=== PATIENT | male | born 1985 | race Caucasian/White ===

== ENCOUNTER 2022-08-15 12:47 | Emergency (ER) | payer MEDICAID ==
[~2022-08-15] VITALS: Ht 175.3 cm; Wt 59.1 kg
[2022-08-15 13:09] LABS: COVID AG,FIA SOURCE NASAL SWAB
[2022-08-15 13:44] VITALS: BP 145/87
[2022-08-16] MEDS ORDERED: PANT40TA54 PO (08:10)
== END 2022-08-15 14:26 | disposition home or self-care (01) ==
LOC: EMS 13:04
DX: Z01.84 Encounter for antibody response examination (principal); F12.90 Cannabis use, unspecified, uncomplicated; Z20.822 Contact with and (suspected) exposure to COVID-19
CPT/HCPCS: 99283

== ENCOUNTER 2022-08-16 07:37 | Day surgery (SDC) | payer MEDICAID ==
[~2022-08-16] VITALS: Ht 175.3 cm; Wt 59.1 kg
[2022-08-16] MEDS ORDERED: PROPOFOL 1% 20 ML VIAL IVP ONE (07:38)
[2022-08-16 07:54] LABS: COVID AG,FIA SOURCE NASAL SWAB
[2022-08-16] MEDS ORDERED: PANT40TA54 PO (08:10)
[2022-08-16] MEDS ORDERED: SODIUM CHLORIDE 0.9% 1,000 ML IV ONE (10:00)
== END 2022-08-16 10:50 | disposition home or self-care (01) ==
LOC: SURGERY 07:37
PROVIDERS: ATTEND Internal Medicine Gastroenterology
DX: K22.70 Barrett's esophagus without dysplasia (principal); K31.89 Other diseases of stomach and duodenum; K44.9 Diaphragmatic hernia without obstruction or gangrene; F32.A Depression, unspecified; Z78.9 Other specified health status; Z98.890 Other specified postprocedural states; Z79.899 Other long term (current) drug therapy
CPT/HCPCS: 43239; 87426; 88305; 88312; 88313; C1769; J2704; C9803